=== PATIENT | male | born 1990 | race Caucasian/White ===

== ENCOUNTER 2017-08-29 23:10 | Emergency (ER) | payer OTHER ==
[~2017-08-29] VITALS: Ht 175.3 cm; Wt 100.0 kg
[2017-08-30 01:28] VITALS: BP 140/96
== END 2017-08-30 01:28 | disposition home or self-care (01) ==
LOC: ED 23:10
DX: M25.562 Pain in left knee (principal); V20.4XXA Motorcycle driver injured in collision with pedestrian or animal in traffic accident, initial encounter; Y92.410 Unspecified street and highway as the place of occurrence of the external cause; F17.200 Nicotine dependence, unspecified, uncomplicated
CPT/HCPCS: L1830